=== PATIENT | male | born 1990 | race Two or more races ===

== ENCOUNTER → 2016-10-23 | Emergency (ER) | payer OTHER ==
[~2016-10-23] VITALS: Ht 172.7 cm; Wt 65.8 kg
[~2016-10-23] MED LIST: BACITRACIN-P28.35 GM TP; Bacitracin Oint UD TOPIC ONE; CEPHALEXIN500 MG ORAL; NKM; Tetanus/Diptheria/Pertussis Vaccine 0.5ml Syr IM ONE
[2016-10-23 19:20] VITALS: BP 128/71
--- NOTE | 2016-10-23 20:21 | Emergency Room Report ---
History of Present Illness General Chief Complaint: Laceration Source: Patient Present Illness HPI 26-year-old male presents to the emergency department complaining of laceration that revealed pain on the palm of his right hand. Patient states that he had a glass bottle which shattered in his hand 5 days ago. Patient states that the laceration healed however we opened by itself today. Patient states bleeding is very minimal. Patient reports soft tissue protrusion. Patient states he does not know when his last tetanus vaccination was. Patient denies new injury or fall. Pt denies pain. Pt states while healing the lesion looked like a blister filled with blood. Patient denies taking blood thinning medications. Denies numbness tingling or loss of sensation or gross motor movements of the extremities, incontinence of bowel or bladder. Denies CP, Palpitations, LOC, AMS , dizziness, Changes in Vision, Sensation, paresthesias, or a sudden severe headache. Allergies: Coded Allergies: No Known Allergies (Unverified , 10/23/16) Patient History Past Medical History: see triage record Past Surgical History: none Pertinent Family History: none Reviewed Nursing Documentation: PMH: Agreed, PSxH: Agreed Nursing Documentation-PMH Past Medical History: No Stated History Review of Systems All Other Systems: negative except mentioned in HPI Physical Exam Vital Signs Date Time Temp Pulse Resp B/P Pulse Ox O2 Delivery O2 Flow Rate FiO2 10/23/16 19:14 98.1 75 16 128/71 97 Sp02 EP Interpretation: reviewed, normal General Appearance: no apparent distress, alert, GCS 15, non-toxic Head: normocephalic, atraumatic Eyes: bilateral eye PERRL, bilateral eye normal inspection ENT: hearing grossly normal, normal pharynx, no angioedema, normal voice Neck: full range of motion, supple/symm/no masses Respiratory: lungs clear, normal breath sounds, speaking full sentences Cardiovascular #1: regular rate, rhythm, no edema Musculoskeletal: back normal, gait/station normal, normal range of motion, non- tender Neurologic: alert, oriented x3, responsive, motor strength/tone normal, sensory intact, speech normal Psychiatric: judgement/insight normal, memory normal, mood/affect normal Skin: normal color, no rash, warm/dry, well hydrated, laceration - stellate right palm laceration approx 1 cm in length/diameter with mild soft tissue protrusion. Medical Decision Making PA Attestation Dr. Marin is my supervising Physician whom patient management has been discussed with. Diagnostic Impression: Primary Impression: Laceration ER Course 26-year-old male presents to the emergency department complaining of laceration that revealed pain on the palm of his right hand. Patient states that he had a glass bottle which shattered in his hand 5 days ago. Patient states that the laceration healed however we opened by itself today. Patient states bleeding is very minimal. Patient reports soft tissue protrusion. Patient states he does not know when his last tetanus vaccination was. Patient denies new injury or fall. Pt denies pain. Patient denies taking blood thinning medications. Denies numbness tingling or loss of sensation or gross motor movements of the extremities, incontinence of bowel or bladder. Denies CP, Palpitations, LOC, AMS , dizziness, Changes in Vision, Sensation, paresthesias, or a sudden severe headache. Ddx considered but are not limited to laceration, tendon injury, cellulitis, foreign body Vital signs: are WNL, pt. is afebrile H&PE are most consistent with: stellate right palm laceration approx 1 cm in length/diameter with mild soft tissue protrusion. ORDERS: -- X-ray Left Hand 3 views - negative for Foreign body, fx, Dislocation, or significant soft tissue injury, per preliminary read in ED by Dr. Marin - interpretation is scribed by PA. ED INTERVENTIONS: -Tetanus vaccine was administered as pt. vaccination status was unknown. - The wound was copiously irrigated with normal saline, and explored for foreign body for which no FB was found. -Bacitracin and sterile dressing is applied. - Wound to close by secondary intent. Discussed with patient: That we make every effort to approximate the laceration as best as we can so that scarring will be as cosmetically pleasing as possible with our limited cosmetic skill set in the Emergency dept. Regardless of our best efforts there will be scarring after laceration repair. The extent of scarring is unknown at this time. d/w pt. that he will be d/c with oral abx, and antibiotic ointment. that his hand will heal on its own by what we call secondary intent. d/w pt. follow up with a PCP. DISCHARGE: At this time pt. is stable for d/c to home. Will provide printed patient care instructions, and any necessary prescriptions. Care plan and follow up instructions have been discussed with the patient prior to discharge. Last Vital Signs Date Time Temp Pulse Resp B/P Pulse Ox O2 Delivery O2 Flow Rate FiO2 10/23/16 19:20 98.1 66 16 128/71 97 Disposition: HOME, SELF-CARE Condition: Stable Scripts Bacitracin/Polymyxin B Sulfate (BACITRACIN-POLYMYXIN OINTMENT) 28.35 Gm Oint...g. 1 APPLIC TP BID, #28.3 GM Prov: Mica España 10/23/16 Cephalexin* (KEFLEX*) 500 Mg Capsule 500 MG ORAL EVERY 12 HOURS for 7 Days, #14 CAP 0 Refills Prov: Mica España 10/23/16 Patient Instructions: Nonsutured Laceration Care Additional Instructions: Take medications as directed. Follow up with a Primary Care Provider in 3-5 days, even if your symptoms have resolved. --Please review list of primary care clinics, if you do not already have a primary care provider Return sooner to ED if new symptoms occur, or current symptoms become worse. - Please note that this Emergency Department Report was dictated using [employer] f[employer] technology software, occasionally this can lead to erroneous entry secondary to interpretation by the dictation equipment. Mica España Oct 23, 2016 20:21
[2016-10-23 20:30] VITALS: BP 128/71
--- NOTE | 2016-10-24 10:59 | Diagnostic Imaging Report ---
Indication: PAIN Technique: 3 views right hand Comparison: none Findings: 4 mm sclerotic lesion appears to project inside the second metatarsal head on all projections, most likely represents a small bone island. No acute fractures. No dislocations. Joint spaces are preserved Impression: No acute bony trauma
== END | disposition home or self-care (01) ==
LOC: EMR 19:49
DX: S61.411A Laceration without foreign body of right hand, initial encounter (principal); Z23 Encounter for immunization; W25.XXXA Contact with sharp glass, initial encounter; Y93.9 Activity, unspecified; Y92.9 Unspecified place or not applicable
CPT/HCPCS: 90471; 90715; 96372; 99284